=== PATIENT | male | born 1940 | race Caucasian/White ===

== ENCOUNTER 2022-05-21 14:55 | Emergency (ER) | payer OTHER, MEDICARE, SELFPAY ==
[2022-05-21] VITALS (14 sets, daily range): BP systolic 141–178; BP diastolic 55–74; PULSE 64–77; RESP 12–26; TEMP 36.8; O2SAT 97–100
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
--- NOTE | ~2022-05-21 | CT_ITS ---
EXAMINATION: CT brain wo con INDICATION: Dizziness COMPARISON: None TECHNIQUE: Standard unenhanced head CT. The dose-length product (DLP) was 681.00 mGy-cm. The mA was a djusted according to patient size. Iterative reconstruction technique was employed. FINDINGS: There is no acute intraparenchymal hemorrhage. No evidence of mass lesion. No evidence of a cute infarction. There is mild periventricular and subcortical hypodensity probably related to small vessel ischemic disease. There is mild prominence of the sulci and ventricles related to cerebral atr ophy. Intracranial calcified cerebral atherosclerosis is noted. There are no extra-axial collections. There is no mass effect or midline shift. The orbits and soft tissues are unremarkable. The visualiz ed sinuses and mastoid air cells are well aerated. IMPRESSION: 1. No acute intracranial abnormality. 2. Age related findings. Reviewed, dictated and finalized at location F. PRODUCTION HEATER
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
--- NOTE | 2022-05-21 15:04 | ECG_ITS ---
Measurements Intervals [place] Rate: 66 P: -6 MT: 179 QRS: 13 QRSD: 102 T: 27 QT: 382 QTc: 401 Interpretive Statements SINUS RHYTHM BASELINE ARTIFACT- I, II, III, AVR, AVL, AVF, V1-V6 NORMAL ECG NO PREVIOUS ECG AVAILABLE FOR COMPARISON Electronically Signed On 05-22-2022 7:48:39 STORY TELLER by Jose Erwin D.O.
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
[2022-05-21 16:10] LABS: Basophils Percent Auto 0.2 % (0.2-1.2); Eosinophils Percent Auto 0.3 % (0-4.4); Hematocrit 36.2 % (42.0-52.0); Hemoglobin 11.9 g/dL (14.0-18.0); Immature Granulocyte Absolute 0.07 K/mm3 (0.00-0.031); Immature Granulocyte Percent A 0.8 % (0-0.5); Lymphocytes Absolute Auto 1.21 K/mm3 (0.9-3.2); Lymphocytes Percent Auto 13.8 % (18.3-44.2); Mean Corpuscular HGB Conc 32.9 g/dl (32-36); Mean Corpuscular Hemoglobin 36.8 pg (26-34); Mean Corpuscular Volume 112.1 fl (80-100); Mean Platelet Volume 9.6 fl (7.4-10.4); Monocytes Absolute Auto 0.5 K/mm3 (0.1-0.6); Monocytes Percent Auto 5.3 % (2.6-8.5); Neutrophils Percent Auto 79.6 % (45.5-73.1); Platelet Count Result 181 k/mm3 (150-375); Red Blood Count 3.23 M/mm3 (4.6-6.20); Red Cell Distribution Width 13.3 % (11.5-14.5); White Blood Count 8.8 K/mm3 (4.5-10.0)
[2022-05-21 16:17] LABS: Alanine Aminotransferase 16 U/L (6-50); Albumin Level 4.3 g/dL (3.5-5.1); Alkaline Phosphatase 116 U/L (38-126); Anion Gap 8 mmol/L (8-16); Aspartate Amino Transferase 30 U/L (17-59); Bilirubin,Total 0.9 mg/dL (0.2-1.3); Blood Urea Nitrogen 14 mg/dL (9-20); Calcium 8.9 mg/dL (8.4-10.2); Carbon Dioxide 29 mmol/L (22-30); Chloride 102 mmol/L (98-107); Estimated CRCL calculation 82 ml/min; Estimated Glomerular Filt Rate > 60; Glucose 117 mg/dL (65-110); Lipase 199 U/L (23-300); Potassium 4.3 mmol/L (3.4-5.0); Sodium 139 mmol/L (137-145)
[2022-05-21 16:28] LABS: Troponin I 0.017 ng/mL (0.000-0.034)
[2022-05-21 16:42] LABS: Platelet Estimate Adequate (Adequate)
[2022-05-21 16:43] LABS: Macrocytosis 1+ (NORMAL); Schistocytes None Seen (NORMAL)
[2022-05-21] MEDS: TETANUS,DIPHTHERIA,AC PERTUSSIS ADULT (0.5 ML) BOOSTRIX IM (16:56)
== END 2022-05-21 18:10 | disposition short-term general hospital (02) ==
PROVIDERS: Emergency Provider Emergency Medicine; PCP Family Medicine
DX: S22.22XA Fracture of body of sternum, initial encounter for closed fracture (principal); S01.81XA Laceration without foreign body of other part of head, initial encounter; Z23 Encounter for immunization; F03.90 Unspecified dementia, unspecified severity, without behavioral disturbance, psychotic disturbance, mood disturbance, and anxiety; E78.5 Hyperlipidemia, unspecified; I10 Essential (primary) hypertension; E11.9 Type 2 diabetes mellitus without complications; M19.90 Unspecified osteoarthritis, unspecified site; E53.8 Deficiency of other specified B group vitamins; E55.9 Vitamin D deficiency, unspecified; Z87.891 Personal history of nicotine dependence; M47.812 Spondylosis without myelopathy or radiculopathy, cervical region; Z79.84 Long term (current) use of oral hypoglycemic drugs; R91.8 Other nonspecific abnormal finding of lung field; V43.52XA Car driver injured in collision with other type car in traffic accident, initial encounter
CPT/HCPCS: 12013; 36415; 70450; 71046; 71260; 72125; 72170; 80053; 83690; 84484; 85025; 90471; 90715; 93005; 99285; Q9967

== ENCOUNTER 2023-09-09 12:40 | Outpatient (CLI) | payer MEDICARE, SELFPAY ==
--- NOTE | ~2023-09-09 | CT_ITS ---
Clinical Indication: Weight loss CT Scan of the Chest, Abdomen, and Pelvis with Contrast: Technique: Contiguous sections were acquired throughout the chest, abdomen, and pelvis after intraven ous administration of 100 cc of Omnipaque 350. Dose reduction technique was used on this scan by naeem barba automated exposure control and iterative reconstruction technique. The dose-length product (DL P) was 1148.61 mGy-cm. COMPARISON: 05/21/2022 Findings: There is no evidence of any significant mediastinal, hilar or axillary lymphadenopathy. The mediastin al soft tissues appear normal. There is no evidence of pleural or pericardial effusion. Stable 6 mm nodule anterior right lung. No other significant pulmonary abnormality. The liver, spleen, pancreas, gallbladder, adrenals and kidneys are within normal limits. There are at herosclerotic calcifications of the aorta. No lymphadenopathy. No bowel obstruction or bowel wall thickening. There is no evidence to suggest acute appendicitis. There is streak artifact in the pelvis from bilateral hip arthroplasty. Urinary bladder grossly unrem arkable. No definite pelvic mass seen. No definite ascites. Impression: No acute abnormality. Stable 6 mm right lung nodule. Reviewed, dictated and finalized at [facility]. CLE OPERATOR TECHNICIAN Impression: No acute abnormality. Stable 6 mm right lung nodule.
[2023-09-09 13:05] LABS: Estimated Glomerular Filt Rate > 60
== END 2023-09-09 12:41 ==
LOC: GOSHIMG 12:41
PROVIDERS: PCP Family Medicine; Visit Provider Family Medicine
DX: R63.4 Abnormal weight loss (principal); R91.1 Solitary pulmonary nodule
CPT/HCPCS: 71260; 74177; Q9967

== ENCOUNTER 2024-03-14 11:08 | Inpatient (IN) | payer MEDICARE, SELFPAY ==
[2024-03-14] VITALS (31 sets, daily range): BP systolic 111–170; BP diastolic 55–145; PULSE 66–88; RESP 19–31; TEMP 36.2–37.1; O2SAT 70–100; BMI 21.4
--- NOTE | ~2024-03-14 | CT_ITS ---
EXAMINATION: CT brain wo con DATE: 03/14/2024 12:38 INDICATION: Fall. TECHNIQUE: Computed tomography (CT) of the head was performed without intravenous contrast. The mA wa s adjusted according to patient size. Iterative reconstruction technique was employed. The dose-lengt h product was 1135.00 mGy-cm. COMPARISON: Head CT 05/21/2022 FINDINGS: There is diffuse brain volume loss. There are scattered areas of low attenuation in the cer ebral white matter, which is within normal limits for the patient's age. There is no intracranial hem orrhage, acute infarction, or abnormal intracranial mass lesion. The ventricles are normal in size. T here is mucosal thickening and dependent fluid in the paranasal sinuses. The mastoid air cells are no rmal. The orbits are normal. IMPRESSION: 1. Normal aging brain. Reviewed, dictated and finalized at location A. IMPRESSION: 1. Normal aging brain.
--- NOTE | ~2024-03-14 | XR_ITS ---
EXAMINATION: XR chest 1V portable DATE: 03/17/2024 13:43 INDICATION: Pneumonia. TECHNIQUE: A single frontal view of the chest was obtained. COMPARISON: Chest single view 03/15/2024, chest CT 03/14/2024 FINDINGS: There are patchy airspace opacities in all right lung zones and in left mid and lower lung zones. No pleural effusion or pneumothorax. The heart size is normal. IMPRESSION: 1. Diffuse lung disease with worsening in right upper lung zone, consistent with pneumonia. Reviewed, dictated and finalized at location A. IMPRESSION: 1. Diffuse lung disease with worsening in right upper lung zone, consistent wit h pneumonia.
--- NOTE | ~2024-03-14 | CT_ITS ---
EXAMINATION: CTA chest PE protocol DATE: 03/14/2024 15:22 INDICATION: Hypoxia. Elevated d-dimer. TECHNIQUE: Computed tomography (CT) pulmonary angiogram of the chest was performed with 100 mL Omnipa que-350 intravenous contrast. Additional 3D reconstructions utilizing coronal maximum intensity proje ction (MIP) were performed. Automated exposure control and iterative reconstruction technique were em ployed. The dose-length product was 634.12 mGy-cm. COMPARISON: None FINDINGS: No pulmonary embolus. Patchy groundglass opacities and consolidation in the right upper and middle lo bes and at the superior segment of the left lower lobe. Additional more confluent consolidation in th e posterior aspect of the bilateral lower lobes with some associated volume loss consistent with atel ectasis although superimposed pneumonia not excludable. Calcified right lower lobe nodule and calcifi ed right hilar lymph nodes consistent with old granulomatous disease. No septal line thickening to judd ggest pulmonary edema. No pleural effusion. Borderline heart size. Small amount of scattered atherosc lerotic coronary artery calcific lesion. No pericardial effusion. Thoracic aorta is normal in caliber with no dissection. No pathologically enlarged thoracic lymphadenopathy. Unchanged 7 mm gallstone ve rsus polyp at the dependent neck of the otherwise normal gallbladder. Severe cervical and moderate th oracic and upper lumbar spondylosis. IMPRESSION: 1. No pulmonary embolism. 2. Patchy groundglass opacities and consolidation in the right upper and middle lobes and superior se gment left lower lobe suspicious for multifocal pneumonia. 3. Consolidation in the bilateral lower lobes with associated volume loss consistent with atelectasis although additional superimposed pneumonia not excludable. 4. Borderline heart size. 5. Unchanged 7 mm gallbladder polyp versus gallstone at the dependent neck of the otherwise normal ga llbladder. Reviewed, dictated and finalized at location B. IMPRESSION: 1. No pulmonary embolism. 2. Patchy groundglass opacities and consolidation in the right upper and middle lobes and superior segment left lower lobe suspicious for multifocal pneumonia . 3. Consolidation in the bilateral lower lobes with associated volume loss consi stent with atelectasis although additional superimposed pneumonia not excludabl e. 4. Borderline heart size. 5. Unchanged 7 mm gallbladder polyp versus gallstone at the dependent neck of t he otherwise normal gallbladder.
--- NOTE | ~2024-03-14 | US_ITS ---
EXAMINATION: US renal BI DATE: 03/14/2024 21:59 INDICATION: Acute kidney injury TECHNIQUE: Multiple grayscale and Doppler ultrasound images of the kidneys were obtained. COMPARISON: CT cap 09/09/2023 FINDINGS: The right kidney measures 10.6 x 5.8 x 5.7 cm. The left kidney measures 10.2 x 5.3 x 5.2 cm. The kidn eys demonstrate normal parenchymal echogenicity. There is no hydronephrosis. Verdugo balloon within the bladder lumen. IMPRESSION: Unremarkable renal sonogram findings. Reviewed, dictated and finalized at location K.
--- NOTE | ~2024-03-14 | XR_ITS ---
XR chest 1V portable Ordering provider: Kyra Del Castillo APRN History: 83 years Male with . difficulty breathing . Comparison: March 14, 2024 FINDINGS: MEDIASTINUM: The cardiac silhouette is slightly enlarged. LUNGS: No effusions or pneumothorax. Bilateral basal opacification suggestive of pneumonia Possibly a slightly increased compared to previous study. OTHER: No free air under the diaphragm. Degenerative changes of the spine. IMPRESSION: Bilateral basal pneumonia. Reviewed, dictated and finalized at location A. IMPRESSION: Bilateral basal pneumonia.
--- NOTE | ~2024-03-14 | XR_ITS ---
XR chest 1V portable Ordering provider: Teressa Mcguire MD History: 83 years Male with . found on floor . Comparison: May 21, 2023 FINDINGS: MEDIASTINUM: The cardiac silhouette is not enlarged. LUNGS: No effusions or pneumothorax. Bilateral basal opacification suggestive of pneumonia. OTHER: No free air under the diaphragm. Dextroscoliosis with degenerative spine. IMPRESSION: Bilateral basal pneumonia. Aspiration pneumonia is possible. Reviewed, dictated and finalized at location A.
--- NOTE | ~2024-03-14 | CT_ITS ---
EXAMINATION: CT cervical spine wo con DATE: 03/14/2024 12:38 INDICATION: Fall. TECHNIQUE: Computed tomography (CT) of the cervical spine was performed without intravenous contrast. Automated exposure control and iterative reconstruction technique were employed. The dose-length pro duct was 367.02 mGy-cm. COMPARISON: CT cervical spine 05/21/2022, chest CT 09/09/2023 FINDINGS: There is 2 mm anterolisthesis of C3 on C4, 2 mm retrolisthesis of C4 on C5 and C5 on C6, an d 2 mm anterolisthesis of C7 on T1. There is a compression fracture of T2 with less than 1/5 loss of height, stable from 09/09/2023. There is mildly decreased disc height at C3-C4 and severely decreased d isc height from C4-C5 through C6-C7. The following disc levels are specifically discussed: C2-C3: There is no uncovertebral joint osteoarthritis. There is severe bilateral facet joint osteoart hritis. There is mild right neural foraminal stenosis. There is no central canal stenosis. C3-C4: There is severe bilateral uncovertebral joint osteoarthritis. There is severe bilateral facet joint osteoarthritis. There is mild bilateral neural foraminal stenosis. There is moderate central ca nal stenosis. C4-C5: There is severe bilateral uncovertebral joint osteoarthritis. There is severe bilateral facet joint osteoarthritis. There is moderate right and mild left neural foraminal stenosis. There is moder ate central canal stenosis. C5-C6: There is severe bilateral uncovertebral joint osteoarthritis. There is moderate bilateral face t joint osteoarthritis. There is moderate right and mild left neural foraminal stenosis. There is mod erate central canal stenosis. C6-C7: There is severe bilateral uncovertebral joint osteoarthritis. There is severe bilateral facet joint osteoarthritis. There is mild bilateral neural foraminal stenosis. There is mild central canal stenosis. C7-T1: There is no uncovertebral joint osteoarthritis. There is severe bilateral facet joint osteoart hritis. There is mild bilateral neural foraminal stenosis. There is no central canal stenosis. IMPRESSION: 1. No acute fracture. 2. Severe cervical spondylosis. Reviewed, dictated and finalized at location A.
--- NOTE | 2024-03-14 11:14 | ECG_ITS ---
Test Date: 2024-03-14 11:20:12 Measurements Intervals [place] Rate: 71 P: 0 AL: 0 QRS: 47 QRSD: 95 T: 56 QT: 430 QTc: 470 Interpretive Statements SINUS RHYTHM ATRIAL PREMATURE COMPLEX AND FREQUENT VENTRICULAR PREMATURE COMPLEXES BORDERLINE ST-T WAVE ABNORMALITY- LAT/HIGH LAT LEADS BASELINE ARTIFACT- I, II, III, AVR, AVL, AVF, V1-V6 ABNORMAL ECG No previous ECG available for comparison Electronically Signed On 03-14-2024 11:24:53 CDT by Jose Erwin D.O.
[2024-03-14 11:28] LABS: Alveolar/Arterial O2 Gradient 615.1 mmHg; Base Excess ABG -7.5 mEq/l (+/-2.0); Carboxyhemoglobin 0.8 % THb (0-2.0); Fractional Inspired Oxygen 100 %; HCO3 ABG 18.1 mEq/l (22.0-26.0); Methemoglobin ABG 0.3 %THb (0-1.5); Oxygen Content ABG 14.6 %vol (16.0-22.0); Oxygen Saturation ABG 89.2 % (95.0-100.0); PCO2 ABG 37.2 mmHg (35.0-45.0); PO2 ABG 60.7 mmHg (80.0-100.0); PO2 FiO2 Ratio Arterial Blood 0.61 %; Reduced Hemoglobin 13.5 %THb (0-5.0); Total Hemoglobin 12.1 g/dL (12.0-18.0); pH ABG 7.305 (7.350-7.450)
[2024-03-14 11:32] LABS: Oxyhemoglobin 85.4 % THb (90.0-100.0)
[2024-03-14 11:33] LABS: Device NON-REBREATHER MASK; Site Drawn LEFT BRACHIAL
[2024-03-14 12:32] LABS: Hematocrit 36.3 % (42.0-52.0); Hemoglobin 11.9 g/dL (14.0-18.0); Mean Corpuscular HGB Conc 32.8 g/dl (32-36); Mean Corpuscular Hemoglobin 36.2 pg (26-34); Mean Corpuscular Volume 110.3 fl (80-100); Mean Platelet Volume 10.4 fl (7.4-10.4); Platelet Count Result 203 k/mm3 (150-375); Red Blood Count 3.29 M/mm3 (4.6-6.20); Red Cell Distribution Width 13.3 % (11.5-14.5)
[2024-03-14 12:42] LABS: Lactic Acid Reflex 3.9 mmol/L (0.7-2.0)
[2024-03-14 12:50] LABS: Creatine Kinase 2804 U/L (55-170); INR 1.3; Partial Thromboplastin Time 33.3 Seconds (22.3-36.8); Prothrombin Time 16.5 Seconds (11.1-14.7)
--- NOTE | 2024-03-14 12:54 | ED.SOB ---
HPI - SOB/Dyspnea General Chief Complaint: Shortness of Breath/Dyspnea Stated Complaint: SOB, low pulse ox Time Seen by Provider: 03/14/24 11:49 Source: patient, family (sister and great nephew, son) and EMS Mode of arrival: EMS Limitations: dementia History of Present Illness HPI Narrative: Patient presents after being found on the ground with a shelf on top of him. Last seen yesterday approximately 1700. He is active at baseline, walks 1 - 1.5 miles/day, though history of (Alzheimer) dementia, on mementdizine adn donepazil. Denies chest pain. States he is having some minor epigastric abdominal pain. He was found laying in his own stool. EMS founds him hypoxic at 60% on room air then 70s-80s. Tried CPAP but with worsening saturations by report. Denies shoulder pain. EMS adminsitered Duoneb and solumedrol. Dried blood on left head. No underlying respiratiory conditions. Lives by himself with assistance. Related Data Home Medications Medication Instructions Recorded Confirmed glucosamine-chondroitin 250 mg-200 2 tablet PO TID 12/12/19 03/14/24 mg tablet (Osteo Bi-Flex) vit C,E,zinc,copper-jjaqk2b 250 1 cap PO DAILY 12/12/19 03/14/24 mg-lutein 5 mg-zeaxanthin 1 mg capsule (Ocuvite Adult 50 Plus) naproxen sodium 220 mg capsule 220 mg PO DAILY PRN Pain 01/12/23 03/14/24 (Aleve) clobetasol 0.05 % topical cream 1 applic topical DAILY PRN Pain 02/28/24 03/14/24 Allergies Allergy/AdvReac Type Severity Reaction Status Date / Time No Known Allergies Allergy Verified 02/28/24 08:46 [facility] Past Medical History Medical History (Updated 03/14/24 @ 16:33 by Kimberly Brantley PA-C) Arthritis Dementia without behavioral disturbance Dyslipidemia Essential hypertension Sternal fracture (05/2022) Type 2 diabetes mellitus without complication, without long-term current use of insulin hemoglobin A1c: 5.4(07/28) << 5.3(01/24) << 5.4(06/25) << 6.4(08/22) << 6.1(03/20). Vitamin B12 deficiency Vitamin D deficiency Surgical History Surgical History (Updated 03/14/24 @ 16:23 by Kimberly Brantley PA-C) History of arthroplasty of left hip (01/2000) History of arthroplasty of right hip History of tonsillectomy Family History Family History Father Bone cancer Mother Heart failure Social History Social History (Updated 03/14/24 @ 20:41 by Kimberly Brantley PA-C) Social History: Surrogate medical decision maker: Jus Kyle, sibling. Code status: Do not resuscitate. Smoking status: Former smoker Second hand tobacco smoke exposure: No Smoking end date: 07/05/81 Alcohol intake: former Substance use: never Substance use type: does not use Do You Feel Safe in your Home?: Yes Lack of Transportation: No Lack of Food: Never True Current Housing: I Have Housing Concerned About Future Housing: No Difficulty Paying Gas/Electric Bills: No Difficulty Paying for Meds: No Currently Unemployed: No Education: High School Diploma/GED Difficulty w/ Childcare or Family Care: No Living arrangements: alone Additional living arrangements comments: The patient lives alone but grandson is next door and family members are very involved in his care. He is quite independent are maintained his home, and walks up to 1.5 miles a day. Occupation/Education: retired Additional occupation/education comments: [employer]. Spiritual care concerns: No Agree to blood products: Yes Exam Narrative: GENERAL: Acutely ill appearing but only in mild distress EYES: Non injected, non icteric ENT: Nares clear, no rhinorrhea or epistaxis. Tacky mucous membranes. NECK: Supple. CHEST: Tachypneic. Coasrse bilateral breath sounds. High flow nasal cannula in place. HEART: Regular rate and rhythm. . ABDOMEN: Soft, nondistended. Nontender to palpation. EXTREMITIES: Normal range of motion of the left arm at the shoulder, no bony crepitus. No lower extremity
[2024-03-14 12:58] LABS: Alanine Aminotransferase 25 U/L (6-50); Albumin Level 4.4 g/dL (3.5-5.1); Alkaline Phosphatase 106 U/L (38-126); Anion Gap 18 mmol/L (4-12); Aspartate Amino Transferase 106 U/L (17-59); Bilirubin,Total 1.6 mg/dL (0.2-1.3); Blood Urea Nitrogen 51 mg/dL (9-20); CRP 22.7 mg/dL (<1.0); Calcium 8.8 mg/dL (8.4-10.2); Carbon Dioxide 21 mmol/L (22-30); Chloride 99 mmol/L (98-107); Estimated CRCL calculation 28 ml/min; Estimated Glomerular Filt Rate 36; Glucose 169 mg/dL (65-110); Potassium 3.6 mmol/L (3.4-5.0); Sodium 138 mmol/L (137-145)
[2024-03-14 13:09] LABS: Band Neutrophils Percent 32 % (0-6); Lymphocytes Absolute Manual 0.96 K/mm3 (1.1-4.5); Metamyelocytes Percent 3 %; Monocytes Absolute Manual 0.36 K/mm3 (0.1-0.90); Monocytes Percent Manual 6 % (3-9); Neutrophils Percent Manual 43 % (46-73); Total Cells Counted 100
[2024-03-14 13:10] LABS: Platelet Estimate Adequate (Adequate); Schistocytes None Seen
[2024-03-14 13:16] LABS: Add Urine Microscopic? YES; Appearance Urine Cloudy (Clear); Bacteria Urine None Seen /hpf; Bilirubin Urine Negative (Negative); Blood Urine Trace (Negative); Color Urine Dark Yellow (Yellow); Glucose Urine UA Negative (Negative); Hyaline Casts Urine Present /lpf; Ketones Urine Trace mg/dL (Negative); Leukocyte Esterase Ur Negative LEU/UL (Negative); Need Manual Microscopic Reviewed; Nitrate Urine Negative (Negative); Protein Urine Trace mg/dL (Negative); Specific Grav Ur 1.017 (1.001-1.035); Squamous Epithelial Cell Urine None Seen /hpf (Few); WBC Urine 0-5 /hpf (0-3)
[2024-03-14] MEDS: SODIUM CHLORIDE 0.9% IV 1,000 ML 999 ML IV CONT ×2 (13:28→13:29)
[2024-03-14] MEDS: AZITHROMYCIN 500 MG/NS 250 ML 500 MG/250 ML BAG 250 MG IVPB (13:29)
[2024-03-14 13:54] LABS: SARS-CoV-2 RNA PCR Positive (Negative)
[2024-03-14 14:04] LABS: Lipase 26 U/L (23-300)
[2024-03-14 14:19] LABS: D Dimer 1.81 ug/mL (<0.48)
[2024-03-14 14:22] LABS: NT Pro B Type Natriuretic Pept 4070 pg/mL (19.9-100)
[2024-03-14 15:16] LABS: MRSA (PCR) NOT DETECTED (NOT DETECTE)
[2024-03-14 15:27] LABS: Reflex Lactic Acid Yes or No Add Lactic
[2024-03-14] MEDS: VANCOMYCIN 1,250 MG/NS 250 ML 1,250 MG/250 ML BAG 166.67 MG IVPB (15:30)
--- NOTE | 2024-03-14 16:20 | PM.IMHP ---
H&P: HPI History of Present Illness Date/Time: 03/14/24 16:20 Chief Complaint: Shortness of breath. Narrative: This is an 83-year-old male with dementia, hypertension, hyperlipidemia, and diet-controlled type 2 diabetes mellitus who presented to the emergency department via EMS from home for evaluation of shortness of breath. The patient is not the greatest historian and some of the following is supplemented via a review of his EMR as well as information provided by family members. At baseline he has short-term memory loss but is able to live at home independently. A grandson lives next door and his siblings live close and do provide the patient with assistance and are in touch with him frequently. The patient is able to maintain his home. He is very active and typically walks a mile and a half every day. Niece saw him last evening at about 17:00 and he seemed to be in his usual state of health. On Tuesdays his sister picks him up to go grocery shopping and she called him before coming overt about 09:45 but he did not answer which is unusual. She then went to check on him and found him lying between his bed and the wall with a dresser drawer on top of him. He did not remember how he ended up in that position. Family member suspect that he probably fell and tried to get himself up by grabbing onto the dresser, causing the door to come loose and land on him. He does not have a history of falls. EMS was summoned and upon their arrival the patient was reportedly quite short of breath and hypoxic. He was placed on CPAP which they stated made him worse. At the time my evaluation the patient is watching television and has just finished dinner. He does not have any specific complaints but does endorse shortness of breath when questioned. He denies headache, lightheadedness, dizziness, sinus congestion, sore throat, chest pain, nausea, vomiting, and diarrhea. Family members are not aware of any sick contacts. They have not noticed the patient having difficulties with drinking, eating, and swallowing. They report that his confusion seems to be worse today than usual. In the ED: Vital signs on arrival include an SpO2 of 70%, respiratory 24, blood pressure 145/90, pulse 79, temperature 97.2?. Labs are significant for WBC count of 6.0 with 32% bands, hemoglobin 11.9, MCV 110.3, D-dimer 1.81, BUN 51, creatinine 1.80, lactic acid 3.9, total bilirubin 1.6, AST 106, total CK 2804, CRP 22.7, proBNP 4070. He tested positive for SARS-CoV-2 by PCR. Head and cervical spine CTs were without acute findings. Chest CTA was negative for pulmonary embolism but did show multifocal pneumonia, borderline heart size, and an unchanged 7 mm gallbladder polyp versus stone. He was given azithromycin, ceftriaxone, vancomycin, and normal saline and he is being admitted in this setting for further treatment. Review of Systems Review of Systems: Limited due to the patient's short-term memory loss. Review of systems was negative except for as per HPI. COUNTS INCLUDE 234 BEDS AT THE [facility] Past Medical History Medical History (Updated 03/14/24 @ 16:33 by Kimberly Brantley PA-C) Arthritis Dementia without behavioral disturbance Dyslipidemia Essential hypertension Sternal fracture (05/2022) Type 2 diabetes mellitus without complication, without long-term current use of insulin hemoglobin A1c: 5.4(07/28) << 5.3(01/24) << 5.4(06/25) << 6.4(08/22) << 6.1(03/20). Vitamin B12 deficiency Vitamin D deficiency Surgical History Surgical History (Updated 03/14/24 @ 16:23 by Kimberly Brantley PA-C) History of arthroplasty of left hip (01/2000) History of arthroplasty of right hip History of tonsillectomy Family History Family History Father Bone cancer Mother Heart failure Social History Social History (Updated 03/14/24 @ 20:41 by Kimberly Brantley PA-C) Social History: Surrogate medical decision maker: Jus Wright, sibling. Code status: Do not resuscitat
[2024-03-14] MEDS: REMDESIVIR 200 MG/NS 250 ML 200 MG/250 ML BAG 250 MG IVPB (17:30)
[2024-03-14 17:35] LABS: Glucose Point of Care 110 mg/dl (65-105)
--- NOTE | 2024-03-14 18:24 | PC.NURSE ---
Patient arrived from ED at 1707 via stretcher, alert and oriented x1, pulling at NRB. Patient placed on AIRVOW 50 L , 90% by respiratory. Wound photos of coccyx and left elbow. Brother and sister at bedside to answer admission questions.
[2024-03-14] MEDS: IPRATROPIUM 0.5 MG/ALBUTEROL SULFATE 2.5 MG AMPUL.NEB 3 ML INHALATION (20:07)
[2024-03-14 20:19] LABS: Lactic Acid Reflex 2.7 mmol/L (0.7-2.0)
[2024-03-14 20:33] LABS: Glucose Point of Care 132 mg/dl (65-105)
[2024-03-14] MEDS: guaiFENesin 12 HR 600 MG TABCR PO (21:06)
[2024-03-14] MEDS: DONEPEZIL HCL 10 MG TABLET PO (21:06)
[2024-03-14] MEDS: MEMANTINE 10 MG TABLET PO (21:06)
[2024-03-14] MEDS: DOXYCYCLINE HYCLATE 100 MG TABLET PO (21:06)
[2024-03-14] MEDS: LACTATED RINGERS 1,000 ML 75 ML IV CONT (21:07)
[2024-03-15] VITALS (25 sets, daily range): BP systolic 117–153; BP diastolic 41–63; PULSE 73–108; RESP 18–28; TEMP 36.4–36.9; O2SAT 91–100
[2024-03-15] MEDS: IPRATROPIUM 0.5 MG/ALBUTEROL SULFATE 2.5 MG AMPUL.NEB 3 ML INHALATION ×4 (02:08→20:36)
[2024-03-15 04:42] LABS: Hematocrit 27.5 % (42.0-52.0); Hemoglobin 9.4 g/dL (14.0-18.0); Mean Corpuscular HGB Conc 34.2 g/dl (32-36); Mean Corpuscular Hemoglobin 36.6 pg (26-34); Mean Platelet Volume 10.2 fl (7.4-10.4); Platelet Count Result 140 k/mm3 (150-375); Red Blood Count 2.57 M/mm3 (4.6-6.20); Red Cell Distribution Width 13.4 % (11.5-14.5); White Blood Count 4.1 K/mm3 (4.5-10.0)
[2024-03-15 05:03] LABS: Alanine Aminotransferase 26 U/L (6-50); Albumin Level 3.1 g/dL (3.5-5.1); Alkaline Phosphatase 76 U/L (38-126); Anion Gap 11 mmol/L (4-12); Aspartate Amino Transferase 97 U/L (17-59); Blood Urea Nitrogen 37 mg/dL (9-20); Calcium 8.3 mg/dL (8.4-10.2); Carbon Dioxide 21 mmol/L (22-30); Chloride 107 mmol/L (98-107); Creatine Kinase 1373 U/L (55-170); Estimated CRCL calculation 44 ml/min; Estimated Glomerular Filt Rate > 60; Glucose 121 mg/dL (65-110); Lactate Dehydrogenase 290 U/L (120-246); Magnesium 2.1 mg/dL (1.6-2.3); Potassium 4.1 mmol/L (3.4-5.0); Sodium 139 mmol/L (137-145)
[2024-03-15 05:20] LABS: Total Cells Counted 100
[2024-03-15 05:21] LABS: Band Neutrophils Percent 14 % (0-6); Basophils Absolute Manual 0.04 K/mm3 (0.0-0.1); Basophils Percent Manual 1 % (0-1); Lymphocytes Absolute Manual 0.28 K/mm3 (1.1-4.5); Lymphocytes Percent Manual 7 % (18-44); Monocytes Absolute Manual 0.16 K/mm3 (0.1-0.90); Monocytes Percent Manual 4 % (3-9)
[2024-03-15 05:23] LABS: Metamyelocytes Percent 2 %; Neutrophils Absolute Manual 3.52 K/mm3 (1.3-6.7); Neutrophils Percent Manual 72 % (46-73); Platelet Estimate Decreased (Adequate); Schistocytes None Seen
[2024-03-15 05:34] LABS: CRP 32.2 mg/dL (<1.0)
[2024-03-15] MEDS: guaiFENesin 12 HR 600 MG TABCR PO ×2 (08:48→21:37)
[2024-03-15] MEDS: CYANOCOBALAMIN 1,000 MCG TABLET 1000 MCG BY MOUTH (08:48)
[2024-03-15] MEDS: CHOLECALCIFEROL 1,000 UNITS TABLET 2000 UNITS PO (08:48)
[2024-03-15] MEDS: OPTI-GEN TAB 1 TABLET PO (08:48)
[2024-03-15] MEDS: dexAMETHasone 2 MG TABLET 6 MG PO (08:48)
[2024-03-15] MEDS: DOXYCYCLINE HYCLATE 100 MG TABLET PO ×2 (08:48→21:37)
[2024-03-15] MEDS: LACTATED RINGERS 1,000 ML 75 ML IV CONT (08:49)
[2024-03-15] MEDS: MEMANTINE 10 MG TABLET PO ×2 (08:49→21:37)
--- NOTE | 2024-03-15 16:11 | PM.IMPN ---
Progress Note: A&P Assessment and Plan (1) Sepsis: Code(s): A41.9 - Sepsis, unspecified organism Status: Acute (2) Acute respiratory failure with hypoxia: Code(s): J96.01 - Acute respiratory failure with hypoxia Status: Acute (3) Multifocal pneumonia: Code(s): J18.9 - Pneumonia, unspecified organism Status: Acute (4) COVID: Code(s): U07.1 - COVID-19 Status: Acute (5) Rhabdomyolysis: Code(s): M62.82 - Rhabdomyolysis Status: Acute (6) Acute kidney injury: Code(s): N17.9 - Acute kidney failure, unspecified Status: Acute (7) Dementia: Code(s): F03.90 - Unspecified dementia, unspecified severity, without behavioral disturbance, psychotic disturbance, mood disturbance, and anxiety Status: Acute (8) Essential hypertension: Code(s): I10 - Essential (primary) hypertension Status: Acute Plan #SARS-CoV-2 vs bacterial vs aspiration pneumonia -continue empiric antibiotics and scheduled bronchodilators. -Bedside swallow evaluation shows no signs of aspiration -continue remdesivir and dexamethasone and will be placed in isolation. -Currently on Vapotherm with improvement. -Wean oxygen as tolerated. #Rhabdomyolysis 2/2 fall -Total CK is elevated -head CT no significant finding, neck CT no acute fracture -Continue hydration with close monitoring of volume status and total CK levels. -Acute kidney injury is likely related to underlying sepsis, mild dehydration, and rhabdomyolysis. -Bladder scan to rule out urinary retention. -Medications will be renally dosed and nephrotoxic agents will be avoided. Subjective Date/time seen: 03/15/24 16:11 Interval history: Patient is oriented to person. Had a discussion with the family member will is very close to him. Patient denies any fever chills nausea vomiting or diarrhea. Review of Systems Review of Systems: Limited due to the patient's short-term memory loss. Review of systems was negative except for as per HPI. Exam Narrative: General: Mildly ill-appearing male sitting up in bed. Weight: 69.9 kg. BMI: 21.5. HEENT: Abrasion to the right side of the scalp. PERRL, EOMI. Conjunctiva mildly injected. Sclera anicteric. Tacky mucous membranes. Neck: Supple. No midline vertebral tenderness. Respiratory: Respirations are nonlabored and he is tolerating Vapotherm. Coarse lung sounds heard throughout all lung sequeira with scattered rales and rhonchi. Occasional dry sounding cough. Cardiovascular: Regular rate and rhythm with S1-S2. Gastrointestinal: Abdomen is soft, nontender, and nondistended with positive bowel sounds. Delete Skin: Warm and dry. Abrasion on the right side of the scalp. Bruising about the shoulders and some scabbing on the anterior badillo. Extremities: No cyanosis, clubbing, or edema. Radial and pedal pulses intact. Neurological: Alert to name and date of . He could not tell me his current age or the current year ?who needs to remember that stuff anymore?? He tells me that he is in his house watching television. Cranial nerves 2-12 are grossly intact. Speech is clear. No facial asymmetry. No gross focal deficits to casual conversation. Psychiatric: Pleasantly confused and cooperative. Objective Data Vital Signs Vital Signs: Vital Signs - 24 hr 03/14/24 16:13 03/14/24 17:20 03/14/24 17:07 Temperature 98.8 F 97.6 F Pulse Rate 84 84 Respiratory Rate 24 H 20 Blood Pressure 128/68 139/55 L Pulse Oximetry 100 94 96 Oxygen Delivery High Flow Therapy with Na Oxygen Flow Rate 50 Fraction of Inspired Oxygen 93 03/14/24 18:00 03/14/24 20:12 03/14/24 20:14 Temperature Pulse Rate 78 88 Respiratory Rate 22 H Blood Pressure Pulse Oximetry 96 Oxygen Delivery High Flow Therapy with Na Oxygen Flow Rate 50 Fraction of Inspired Oxygen 89 03/14/24 20:19 03/14/24 20:20 03/14/24 20:00 Temperature 98.8 F Pulse Rate 85
[2024-03-15] MEDS: DONEPEZIL HCL 10 MG TABLET PO (17:09)
[2024-03-15] MEDS: REMDESIVIR 100 MG/NS 250 ML 100 MG/250 ML BAG 250 MG IVPB (21:37)
[2024-03-16] VITALS (22 sets, daily range): BP systolic 106–137; BP diastolic 48–89; PULSE 82–108; RESP 20–28; TEMP 36.2–37.3; O2SAT 96–100
[2024-03-16 05:09] LABS: Hemoglobin 9.3 g/dL (14.0-18.0); Immature Platelet Fraction Pct 3.8 % (0.9-11.2); Mean Corpuscular HGB Conc 32.1 g/dl (32-36); Mean Corpuscular Hemoglobin 35.6 pg (26-34); Mean Corpuscular Volume 111.1 fl (80-100); Mean Platelet Volume 10.3 fl (7.4-10.4); Platelet Count Result 125 k/mm3 (150-375); Red Blood Count 2.61 M/mm3 (4.6-6.20); Red Cell Distribution Width 13.9 % (11.5-14.5); White Blood Count 5.6 K/mm3 (4.5-10.0)
[2024-03-16 05:16] LABS: Alanine Aminotransferase 29 U/L (6-50); Albumin Level 3.1 g/dL (3.5-5.1); Alkaline Phosphatase 67 U/L (38-126); Anion Gap 8 mmol/L (4-12); Aspartate Amino Transferase 85 U/L (17-59); Bilirubin,Total 0.9 mg/dL (0.2-1.3); Blood Urea Nitrogen 30 mg/dL (9-20); Calcium 8.3 mg/dL (8.4-10.2); Carbon Dioxide 26 mmol/L (22-30); Chloride 106 mmol/L (98-107); Estimated CRCL calculation 65 ml/min; Estimated Glomerular Filt Rate > 60; Glucose 122 mg/dL (65-110); Potassium 4.2 mmol/L (3.4-5.0); Sodium 140 mmol/L (137-145)
[2024-03-16 05:20] LABS: INR 1.5; Prothrombin Time 18.7 Seconds (11.1-14.7)
[2024-03-16] MEDS: IPRATROPIUM 0.5 MG/ALBUTEROL SULFATE 2.5 MG AMPUL.NEB 3 ML INHALATION ×4 (06:55→21:07)
[2024-03-16] MEDS: DOXYCYCLINE HYCLATE 100 MG TABLET PO ×2 (08:59→20:26)
[2024-03-16] MEDS: CYANOCOBALAMIN 1,000 MCG TABLET 1000 MCG BY MOUTH (08:59)
[2024-03-16] MEDS: dexAMETHasone 2 MG TABLET 6 MG PO (08:59)
[2024-03-16] MEDS: OPTI-GEN TAB 1 TABLET PO (08:59)
[2024-03-16] MEDS: guaiFENesin 12 HR 600 MG TABCR PO ×2 (08:59→20:26)
[2024-03-16] MEDS: MEMANTINE 10 MG TABLET PO ×2 (08:59→20:26)
[2024-03-16] MEDS: CHOLECALCIFEROL 1,000 UNITS TABLET 2000 UNITS PO (08:59)
--- NOTE | 2024-03-16 14:10 | PCPTNOTE ---
Per OT advised not to see patient for PT, patient is having increase confusion and not following any commands. Patient not appropriate for PT therapy treatment.
--- NOTE | 2024-03-16 15:36 | PM.IMPN ---
Progress Note: A&P Assessment and Plan (1) Sepsis: Code(s): A41.9 - Sepsis, unspecified organism Status: Acute (2) Acute respiratory failure with hypoxia: Code(s): J96.01 - Acute respiratory failure with hypoxia Status: Acute (3) Multifocal pneumonia: Code(s): J18.9 - Pneumonia, unspecified organism Status: Acute (4) COVID: Code(s): U07.1 - COVID-19 Status: Acute (5) Rhabdomyolysis: Code(s): M62.82 - Rhabdomyolysis Status: Acute (6) Acute kidney injury: Code(s): N17.9 - Acute kidney failure, unspecified Status: Acute (7) Dementia: Code(s): F03.90 - Unspecified dementia, unspecified severity, without behavioral disturbance, psychotic disturbance, mood disturbance, and anxiety Status: Acute (8) Essential hypertension: Code(s): I10 - Essential (primary) hypertension Status: Acute Plan #SARS-CoV-2 vs bacterial vs aspiration pneumonia -continue empiric antibiotics and scheduled bronchodilators. -Bedside swallow evaluation shows no signs of aspiration -continue remdesivir and dexamethasone and will be placed in isolation. -Currently on Vapotherm with improvement. -Wean oxygen as tolerated. #Rhabdomyolysis 2/2 fall -Total CK is elevated -head CT no significant finding, neck CT no acute fracture -Continue hydration with close monitoring of volume status and total CK levels. -Acute kidney injury is likely related to underlying sepsis, mild dehydration, and rhabdomyolysis. -Bladder scan to rule out urinary retention. -Medications will be renally dosed and nephrotoxic agents will be avoided. Subjective Date/time seen: 03/16/24 15:36 Interval history: Night team reports patient had episodes of agitation and was restrained physically. Today morning during the evaluation patient was calm and was resting in the bed. Patient has baseline dementia and the confusion/delirium is due to dementia. Today we started the patient on trazodone 50 mg p.o. q.h.s. Review of Systems Review of Systems: Limited due to the patient's short-term memory loss. Review of systems was negative except for as per HPI. Exam Narrative: General: Mildly ill-appearing male sitting up in bed. Weight: 69.9 kg. BMI: 21.5. HEENT: Abrasion to the right side of the scalp. PERRL, EOMI. Conjunctiva mildly injected. Sclera anicteric. Tacky mucous membranes. Neck: Supple. No midline vertebral tenderness. Respiratory: Respirations are nonlabored and he is tolerating Vapotherm. Coarse lung sounds heard throughout all lung sequeira with scattered rales and rhonchi. Occasional dry sounding cough. Cardiovascular: Regular rate and rhythm with S1-S2. Gastrointestinal: Abdomen is soft, nontender, and nondistended with positive bowel sounds. Delete Skin: Warm and dry. Abrasion on the right side of the scalp. Bruising about the shoulders and some scabbing on the anterior badillo. Extremities: No cyanosis, clubbing, or edema. Radial and pedal pulses intact. Neurological: Alert to name and date of . He could not tell me his current age or the current year ?who needs to remember that stuff anymore?? He tells me that he is in his house watching television. Cranial nerves 2-12 are grossly intact. Speech is clear. No facial asymmetry. No gross focal deficits to casual conversation. Psychiatric: Pleasantly confused and cooperative. Objective Data Vital Signs Vital Signs: Vital Signs - 24 hr 03/15/24 16:00 03/15/24 16:00 03/15/24 16:00 Temperature 97.8 F Pulse Rate 81 81 79 Respiratory Rate 18 Blood Pressure 128/51 L Pulse Oximetry 94 93 Oxygen Delivery High Flow Nasal Cannula Oxygen Flow Rate 6 Fraction of Inspired Oxygen 03/15/24 18:00 03/15/24 20:26 03/15/24 20:00 Temperature 97.6 F Pulse Rate 78 103 H 108 H Respiratory Rate 20 Blood Pressure 153/63 H Pulse Oximetry 94 Oxygen Delivery Oxygen Flow Rate [facility]
[2024-03-16] MEDS: DONEPEZIL HCL 10 MG TABLET PO (18:03)
[2024-03-16] MEDS: traZODone HCL 50 MG TABLET PO (20:26)
[2024-03-16] MEDS: REMDESIVIR 100 MG/NS 250 ML 100 MG/250 ML BAG 250 MG IVPB (22:17)
[2024-03-17] VITALS (24 sets, daily range): BP systolic 111–120; BP diastolic 47–55; PULSE 64–90; RESP 18–24; TEMP 36.4–37.2; O2SAT 92–100
[2024-03-17] MEDS: IPRATROPIUM 0.5 MG/ALBUTEROL SULFATE 2.5 MG AMPUL.NEB 3 ML INHALATION ×4 (02:43→19:52)
[2024-03-17 05:34] LABS: Hematocrit 27.8 % (42.0-52.0); Hemoglobin 8.7 g/dL (14.0-18.0); Mean Corpuscular HGB Conc 31.3 g/dl (32-36); Mean Corpuscular Hemoglobin 35.7 pg (26-34); Mean Corpuscular Volume 113.9 fl (80-100); Platelet Count Result 111 k/mm3 (150-375); Red Blood Count 2.44 M/mm3 (4.6-6.20); Red Cell Distribution Width 13.7 % (11.5-14.5); White Blood Count 4.7 K/mm3 (4.5-10.0)
[2024-03-17 05:43] LABS: Alanine Aminotransferase 29 U/L (6-50); Albumin Level 2.8 g/dL (3.5-5.1); Alkaline Phosphatase 65 U/L (38-126); Anion Gap 7 mmol/L (4-12); Aspartate Amino Transferase 59 U/L (17-59); Bilirubin,Total 0.6 mg/dL (0.2-1.3); Blood Urea Nitrogen 29 mg/dL (9-20); Calcium 8.5 mg/dL (8.4-10.2); Carbon Dioxide 29 mmol/L (22-30); Chloride 106 mmol/L (98-107); Estimated CRCL calculation 65 ml/min; Estimated Glomerular Filt Rate > 60; Glucose 169 mg/dL (65-110); Potassium 4.4 mmol/L (3.4-5.0); Sodium 142 mmol/L (137-145)
[2024-03-17] MEDS: OPTI-GEN TAB 1 TABLET PO (09:59)
[2024-03-17] MEDS: dexAMETHasone 2 MG TABLET 6 MG PO (09:59)
[2024-03-17] MEDS: CYANOCOBALAMIN 1,000 MCG TABLET 1000 MCG BY MOUTH (10:00)
[2024-03-17] MEDS: CHOLECALCIFEROL 1,000 UNITS TABLET 2000 UNITS PO (10:00)
[2024-03-17] MEDS: guaiFENesin 12 HR 600 MG TABCR PO ×2 (10:00→21:43)
[2024-03-17] MEDS: MEMANTINE 10 MG TABLET PO ×2 (10:00→21:43)
[2024-03-17] MEDS: DOXYCYCLINE HYCLATE 100 MG TABLET PO ×2 (10:00→21:43)
--- NOTE | 2024-03-17 16:31 | PM.IMPN ---
Progress Note: A&P Assessment and Plan (1) Sepsis: Code(s): A41.9 - Sepsis, unspecified organism Status: Acute (2) Acute respiratory failure with hypoxia: Code(s): J96.01 - Acute respiratory failure with hypoxia Status: Acute (3) Multifocal pneumonia: Code(s): J18.9 - Pneumonia, unspecified organism Status: Acute (4) COVID: Code(s): U07.1 - COVID-19 Status: Acute (5) Rhabdomyolysis: Code(s): M62.82 - Rhabdomyolysis Status: Acute (6) Acute kidney injury: Code(s): N17.9 - Acute kidney failure, unspecified Status: Acute (7) Dementia: Code(s): F03.90 - Unspecified dementia, unspecified severity, without behavioral disturbance, psychotic disturbance, mood disturbance, and anxiety Status: Acute (8) Essential hypertension: Code(s): I10 - Essential (primary) hypertension Status: Acute Plan #SARS-CoV-2 vs bacterial vs aspiration pneumonia -continue empiric antibiotics and scheduled bronchodilators. -Bedside swallow evaluation shows no signs of aspiration -continue remdesivir and dexamethasone and will be placed in isolation. -Currently on Vapotherm with improvement. -Wean oxygen as tolerated. #Rhabdomyolysis 2/2 fall -Total CK is elevated -head CT no significant finding, neck CT no acute fracture -Continue hydration with close monitoring of volume status and total CK levels. -Acute kidney injury is likely related to underlying sepsis, mild dehydration, and rhabdomyolysis. -Bladder scan to rule out urinary retention. -Medications will be renally dosed and nephrotoxic agents will be avoided. Subjective Date/time seen: 03/17/24 16:31 Interval history: Patient is requiring high-flow nasal cannula. No acute events in the night. Patient looks tired. Continue remdesivir and ceftriaxone and doxycycline Review of Systems Review of Systems: Limited due to the patient's short-term memory loss. Review of systems was negative except for as per HPI. Exam Narrative: General: Mildly ill-appearing male sitting up in bed. Weight: 69.9 kg. BMI: 21.5. HEENT: Abrasion to the right side of the scalp. PERRL, EOMI. Conjunctiva mildly injected. Sclera anicteric. Tacky mucous membranes. Neck: Supple. No midline vertebral tenderness. Respiratory: Respirations are nonlabored and he is tolerating Vapotherm. Coarse lung sounds heard throughout all lung sequeira with scattered rales and rhonchi. Occasional dry sounding cough. Cardiovascular: Regular rate and rhythm with S1-S2. Gastrointestinal: Abdomen is soft, nontender, and nondistended with positive bowel sounds. Delete Skin: Warm and dry. Abrasion on the right side of the scalp. Bruising about the shoulders and some scabbing on the anterior badillo. Extremities: No cyanosis, clubbing, or edema. Radial and pedal pulses intact. Neurological: Alert to name and date of . He could not tell me his current age or the current year ?who needs to remember that stuff anymore?? He tells me that he is in his house watching television. Cranial nerves 2-12 are grossly intact. Speech is clear. No facial asymmetry. No gross focal deficits to casual conversation. Psychiatric: Pleasantly confused and cooperative. Objective Data Vital Signs Vital Signs: Vital Signs - 24 hr 03/16/24 18:00 03/16/24 20:05 03/16/24 21:14 Temperature 97.7 F Pulse Rate 90 82 84 Respiratory Rate 22 H Blood Pressure 106/48 L Pulse Oximetry 97 96 Oxygen Delivery High Flow Therapy with Na Oxygen Flow Rate 50 Fraction of Inspired Oxygen 89 03/16/24 21:14 03/16/24 21:20 03/16/24 20:00 Temperature Pulse Rate 84 82 83 Respiratory Rate 20 20 Blood Pressure Pulse Oximetry Oxygen Delivery Oxygen Flow Rate Fraction of Inspired Oxygen 03/16/24 20:00 03/16/24 22:00 03/17/24 00:39 Temperature 97.5 F L Pulse Rate 86 76 Respiratory Rate 22 H Blood Pressure 1
[2024-03-17] MEDS: DONEPEZIL HCL 10 MG TABLET PO (17:22)
[2024-03-17] MEDS: traZODone HCL 50 MG TABLET PO (21:43)
[2024-03-17] MEDS: REMDESIVIR 100 MG/NS 250 ML 100 MG/250 ML BAG 250 MG IVPB (21:44)
[2024-03-18] VITALS (21 sets, daily range): BP systolic 112–129; BP diastolic 50–59; PULSE 65–90; RESP 18–32; TEMP 36.2–36.7; O2SAT 90–100
[2024-03-18] MEDS: IPRATROPIUM 0.5 MG/ALBUTEROL SULFATE 2.5 MG AMPUL.NEB 3 ML INHALATION ×4 (01:54→21:01)
[2024-03-18 04:56] LABS: Hematocrit 28.2 % (42.0-52.0); Hemoglobin 8.9 g/dL (14.0-18.0); Immature Platelet Fraction Pct 8.3 % (0.9-11.2); Mean Corpuscular HGB Conc 31.6 g/dl (32-36); Mean Corpuscular Hemoglobin 36.8 pg (26-34); Mean Corpuscular Volume 116.5 fl (80-100); Mean Platelet Volume 11.5 fl (7.4-10.4); Platelet Count Result 107 k/mm3 (150-375); Red Blood Count 2.42 M/mm3 (4.6-6.20); Red Cell Distribution Width 13.6 % (11.5-14.5); White Blood Count 4.2 K/mm3 (4.5-10.0)
[2024-03-18 05:03] LABS: INR 1.3; Prothrombin Time 16.3 Seconds (11.1-14.7)
[2024-03-18 05:10] LABS: Alanine Aminotransferase 34 U/L (6-50); Albumin Level 2.8 g/dL (3.5-5.1); Alkaline Phosphatase 65 U/L (38-126); Anion Gap 7 mmol/L (4-12); Aspartate Amino Transferase 54 U/L (17-59); Bilirubin,Total 0.6 mg/dL (0.2-1.3); Blood Urea Nitrogen 33 mg/dL (9-20); Calcium 8.8 mg/dL (8.4-10.2); Carbon Dioxide 28 mmol/L (22-30); Chloride 105 mmol/L (98-107); Estimated CRCL calculation 75 ml/min; Estimated Glomerular Filt Rate > 60; Glucose 177 mg/dL (65-110); Potassium 4.4 mmol/L (3.4-5.0); Sodium 140 mmol/L (137-145)
[2024-03-18] MEDS: dexAMETHasone 2 MG TABLET 6 MG PO (10:08)
[2024-03-18] MEDS: CHOLECALCIFEROL 1,000 UNITS TABLET 2000 UNITS PO (10:08)
[2024-03-18] MEDS: CYANOCOBALAMIN 1,000 MCG TABLET 1000 MCG BY MOUTH (10:09)
[2024-03-18] MEDS: OPTI-GEN TAB 1 TABLET PO (10:09)
[2024-03-18] MEDS: guaiFENesin 12 HR 600 MG TABCR PO ×2 (10:09→20:27)
[2024-03-18] MEDS: DOXYCYCLINE HYCLATE 100 MG TABLET PO ×2 (10:09→20:27)
[2024-03-18] MEDS: MEMANTINE 10 MG TABLET PO ×2 (10:09→20:27)
--- NOTE | 2024-03-18 12:09 | PM.IMPN ---
Progress Note: A&P Assessment and Plan (1) Sepsis: Code(s): A41.9 - Sepsis, unspecified organism Status: Acute (2) Acute respiratory failure with hypoxia: Code(s): J96.01 - Acute respiratory failure with hypoxia Status: Acute (3) Multifocal pneumonia: Code(s): J18.9 - Pneumonia, unspecified organism Status: Acute (4) COVID: Code(s): U07.1 - COVID-19 Status: Acute (5) Rhabdomyolysis: Code(s): M62.82 - Rhabdomyolysis Status: Acute (6) Acute kidney injury: Code(s): N17.9 - Acute kidney failure, unspecified Status: Acute (7) Dementia: Code(s): F03.90 - Unspecified dementia, unspecified severity, without behavioral disturbance, psychotic disturbance, mood disturbance, and anxiety Status: Acute (8) Essential hypertension: Code(s): I10 - Essential (primary) hypertension Status: Acute Plan #SARS-CoV-2 vs bacterial vs aspiration pneumonia -continue empiric antibiotics and scheduled bronchodilators. -Bedside swallow evaluation shows no signs of aspiration -continue remdesivir and dexamethasone and will be placed in isolation. -Currently on Vapotherm with improvement. -Wean oxygen as tolerated. #Rhabdomyolysis 2/2 fall -Total CK is elevated -head CT no significant finding, neck CT no acute fracture -Continue hydration with close monitoring of volume status and total CK levels. -Acute kidney injury is likely related to underlying sepsis, mild dehydration, and rhabdomyolysis. -Bladder scan to rule out urinary retention. -Medications will be renally dosed and nephrotoxic agents will be avoided. Subjective Date/time seen: 03/18/24 12:09 Interval history: Patient is confused today. AAO x 1. patient is a-high-flow nasal cannula. The trial of nasal cannula failed due to the drop in oxygen saturation in mid 70s to 80s. The repeat chest x-ray shows worsening of his pneumonia. today we ordered a chest CT and repeat the COVID test. If necessary we will escalate antibiotic .We will discuss with the family tomorrow about the comfort care. Review of Systems Review of Systems: Limited due to the patient's short-term memory loss. Review of systems was negative except for as per HPI. Exam Narrative: General: Mildly ill-appearing male sitting up in bed. Weight: 69.9 kg. BMI: 21.5. HEENT: Abrasion to the right side of the scalp. PERRL, EOMI. Conjunctiva mildly injected. Sclera anicteric. Tacky mucous membranes. Neck: Supple. No midline vertebral tenderness. Respiratory: Respirations are nonlabored and he is tolerating Vapotherm. Coarse lung sounds heard throughout all lung sequeira with scattered rales and rhonchi. Occasional dry sounding cough. Cardiovascular: Regular rate and rhythm with S1-S2. Gastrointestinal: Abdomen is soft, nontender, and nondistended with positive bowel sounds. Delete Skin: Warm and dry. Abrasion on the right side of the scalp. Bruising about the shoulders and some scabbing on the anterior badillo. Extremities: No cyanosis, clubbing, or edema. Radial and pedal pulses intact. Neurological: Alert to name and date of . He could not tell me his current age or the current year ?who needs to remember that stuff anymore?? He tells me that he is in his house watching television. Cranial nerves 2-12 are grossly intact. Speech is clear. No facial asymmetry. No gross focal deficits to casual conversation. Psychiatric: Pleasantly confused and cooperative. Objective Data Vital Signs Vital Signs: Vital Signs - 24 hr 03/17/24 14:00 03/17/24 15:15 03/17/24 15:15 Temperature Pulse Rate 76 72 Respiratory Rate 20 Blood Pressure Pulse Oximetry 93 Oxygen Delivery High Flow Therapy with Na Oxygen Flow Rate 50 Fraction of Inspired Oxygen 65 03/17/24 15:29 03/17/24 16:00 03/17/24 16:00 Temperature 97.7 F Pulse Rate 74 72 73 Respiratory Rate 20 24 H Blood Pressure 118/55
--- NOTE | 2024-03-18 12:47 | PC.NURSE ---
Pt. has been refusing food but will drink water. Pt. continues to pull off AIRVO and O2 level drops to 70-80's. Pt. educated on the importance of wearing the AIRVO in his nose. Pt. is stating that he does not want to live anymore and that he is fine with dying. Family (POA/niece, Odilia & Brother, Jus) have been made aware of pt's condition and dialogue. His brother, Jus, stated that on pt's birthday, pt. said that he hoped he did not see another birthday. Pt. has another brother who will fly in from [place] and another brother to drive from [place], [place] - both on Wednesday. The [facility] plan is for the whole family to be at the hospital around 1 pm on Wednesday and for pt. to become Comfort Care. They would like pt. to be on a nasal canula so that they can visit with him. Dr Durham made aware of pt's condition, dialogue, and family's wishes.
[2024-03-18 15:28] LABS: Pneumococcal Antigen Urine NOT DETECTED
[2024-03-18] MEDS: DONEPEZIL HCL 10 MG TABLET PO (19:38)
[2024-03-18 19:43] LABS: SARS-CoV-2 RNA PCR Positive (Negative)
[2024-03-18] MEDS: traZODone HCL 50 MG TABLET PO (20:27)
[2024-03-18] MEDS: REMDESIVIR 100 MG/NS 250 ML 100 MG/250 ML BAG 250 MG IVPB (22:11)
[2024-03-18 22:27] LABS: Legionella pneumophila Ag Ur NOT DETECTED
[2024-03-19] VITALS (18 sets, daily range): BP systolic 105–126; BP diastolic 49–62; PULSE 69–113; RESP 16–24; TEMP 36.2–36.9; O2SAT 87–100
[2024-03-19] MEDS: IPRATROPIUM 0.5 MG/ALBUTEROL SULFATE 2.5 MG AMPUL.NEB 3 ML INHALATION ×2 (03:03→08:19)
[2024-03-19 04:48] LABS: Hematocrit 24.4 % (42.0-52.0); Hemoglobin 7.9 g/dL (14.0-18.0); Mean Corpuscular HGB Conc 32.4 g/dl (32-36); Mean Corpuscular Hemoglobin 36.2 pg (26-34); Mean Corpuscular Volume 111.9 fl (80-100); Mean Platelet Volume 11.3 fl (7.4-10.4); Platelet Count Result 118 k/mm3 (150-375); Red Blood Count 2.18 M/mm3 (4.6-6.20); Red Cell Distribution Width 13.3 % (11.5-14.5)
[2024-03-19 05:01] LABS: Alanine Aminotransferase 30 U/L (6-50); Albumin Level 2.5 g/dL (3.5-5.1); Alkaline Phosphatase 68 U/L (38-126); Anion Gap 4 mmol/L (4-12); Aspartate Amino Transferase 37 U/L (17-59); Bilirubin,Total 0.5 mg/dL (0.2-1.3); Blood Urea Nitrogen 37 mg/dL (9-20); Calcium 8.7 mg/dL (8.4-10.2); Carbon Dioxide 32 mmol/L (22-30); Chloride 103 mmol/L (98-107); Estimated CRCL calculation 80 ml/min; Estimated Glomerular Filt Rate > 60; Glucose 171 mg/dL (65-110); Potassium 4.1 mmol/L (3.4-5.0); Sodium 139 mmol/L (137-145)
--- NOTE | 2024-03-19 08:35 | PM.IMPN ---
Progress Note: A&P Assessment and Plan (1) Sepsis: Code(s): A41.9 - Sepsis, unspecified organism Status: Acute (2) Acute respiratory failure with hypoxia: Code(s): J96.01 - Acute respiratory failure with hypoxia Status: Acute (3) Multifocal pneumonia: Code(s): J18.9 - Pneumonia, unspecified organism Status: Acute (4) COVID: Code(s): U07.1 - COVID-19 Status: Acute (5) Rhabdomyolysis: Code(s): M62.82 - Rhabdomyolysis Status: Acute (6) Acute kidney injury: Code(s): N17.9 - Acute kidney failure, unspecified Status: Acute (7) Dementia: Code(s): F03.90 - Unspecified dementia, unspecified severity, without behavioral disturbance, psychotic disturbance, mood disturbance, and anxiety Status: Acute (8) Essential hypertension: Code(s): I10 - Essential (primary) hypertension Status: Acute Plan #SARS-CoV-2 vs bacterial vs aspiration pneumonia Under comfort care. -discontinued all medications -discontinued ceftriaxone -PRN bronchodilators. -Bedside swallow evaluation shows no signs of aspiration -Currently on Vapotherm with improvement. -Wean oxygen as tolerated. #Rhabdomyolysis 2/2 fall -Total CK is elevated -head CT no significant finding, neck CT no acute fracture -Continue hydration with close monitoring of volume status and total CK levels. -Acute kidney injury is likely related to underlying sepsis, mild dehydration, and rhabdomyolysis. -Bladder scan to rule out urinary retention. -Medications will be renally dosed and nephrotoxic agents will be avoided. Subjective Date/time seen: 03/19/24 08:35 Interval history: Patient still in the need of high-flow nasal cannula with 60% oxygen and 50 L. today we extended the remdesivir for another 5 days. Since the patient is not improving we discontinued antibiotics ceftriaxone. We started vancomycin for his Staphylococcus hominis in the blood culture even though we previously thought it might be due to the skin contamination. Patient is also started on doxy to cover the atypical. Today we will discuss with the family the long-term goal. Late afternoon : Had a long conversation with his family member including the power of java systems analyst who makes medical decision and it will be decided comfort care at this period. We discontinued all his antibiotics, and added morphine and Ativan for his pain and anxiety respectively. Review of Systems Review of Systems: Limited due to the patient's short-term memory loss. Review of systems was negative except for as per HPI. Exam Narrative: General: Mildly ill-appearing male sitting up in bed. Weight: 69.9 kg. BMI: 21.5. HEENT: Abrasion to the right side of the scalp. PERRL, EOMI. Conjunctiva mildly injected. Sclera anicteric. Tacky mucous membranes. Neck: Supple. No midline vertebral tenderness. Respiratory: Respirations are nonlabored and he is tolerating Vapotherm. Coarse lung sounds heard throughout all lung sequeira with scattered rales and rhonchi. Occasional dry sounding cough. Cardiovascular: Regular rate and rhythm with S1-S2. Gastrointestinal: Abdomen is soft, nontender, and nondistended with positive bowel sounds. Delete Skin: Warm and dry. Abrasion on the right side of the scalp. Bruising about the shoulders and some scabbing on the anterior badillo. Extremities: No cyanosis, clubbing, or edema. Radial and pedal pulses intact. Neurological: Alert to name and date of . He could not tell me his current age or the current year ?who needs to remember that stuff anymore?? He tells me that he is in his house watching television. Cranial nerves 2-12 are grossly intact. Speech is clear. No facial asymmetry. No gross focal deficits to casual conversation. Psychiatric: Pleasantly confused and cooperative. Objective Data Vital Signs Vital Signs: Vital Signs - 24 hr 03/18/24 10:00 03/18/24 12:00 03/18/24 13:23 Temper
[2024-03-19] MEDS: CHOLECALCIFEROL 1,000 UNITS TABLET 2000 UNITS PO (09:02)
[2024-03-19] MEDS: DOXYCYCLINE 100 MG/NS 100 ML 100 MG/100 ML BAG IVPB (09:02)
[2024-03-19] MEDS: guaiFENesin 12 HR 600 MG TABCR PO ×2 (09:02→21:01)
[2024-03-19] MEDS: OPTI-GEN TAB 1 TABLET PO (09:02)
[2024-03-19] MEDS: dexAMETHasone 2 MG TABLET 6 MG PO (09:02)
[2024-03-19] MEDS: CYANOCOBALAMIN 1,000 MCG TABLET 1000 MCG BY MOUTH (09:02)
[2024-03-19] MEDS: MEMANTINE 10 MG TABLET PO ×2 (09:02→21:01)
[2024-03-19] MEDS: VANCOMYCIN 1,250 MG/NS 250 ML 1,250 MG/250 ML BAG 166.67 MG IVPB (10:44)
--- NOTE | 2024-03-19 13:50 | PC.NURSE ---
comfort measures initiated at 13:10, family at bedside. HFNC Airvo removed Nasal cannula 2L placed. restraints removed
--- NOTE | 2024-03-19 16:10 | PC.NURSE ---
This patient, Oanh Fernandez, was received from [facility] on 03/19/24 at 1612. Patient/family oriented to unit policies and routines.
[2024-03-19] MEDS: MORPHINE SULFATE (*CRX) 2 MG/ML INJ IV PUSH (21:01)
[2024-03-19] MEDS: traZODone HCL 50 MG TABLET PO (21:01)
[2024-03-20 08:00] VITALS: BP 115/47; PULSE 80; RESP 17; TEMP 36.1; O2SAT 90
--- NOTE | 2024-03-20 10:11 | PC.NURSE ---
Odilia NewsomePOHolli) and refused administration for AM medications this morning. Patient on comfort measures only.
--- NOTE | 2024-03-20 10:12 | PM.IMPN ---
Progress Note: A&P Assessment and Plan (1) Sepsis: Code(s): A41.9 - Sepsis, unspecified organism Status: Acute (2) Acute respiratory failure with hypoxia: Code(s): J96.01 - Acute respiratory failure with hypoxia Status: Acute (3) Multifocal pneumonia: Code(s): J18.9 - Pneumonia, unspecified organism Status: Acute (4) COVID: Code(s): U07.1 - COVID-19 Status: Acute (5) Rhabdomyolysis: Code(s): M62.82 - Rhabdomyolysis Status: Acute (6) Acute kidney injury: Code(s): N17.9 - Acute kidney failure, unspecified Status: Acute (7) Dementia: Code(s): F03.90 - Unspecified dementia, unspecified severity, without behavioral disturbance, psychotic disturbance, mood disturbance, and anxiety Status: Acute (8) Essential hypertension: Code(s): I10 - Essential (primary) hypertension Status: Acute Plan #SARS-CoV-2 vs bacterial vs aspiration pneumonia Under comfort care and consulted hospice. -discontinued all medications -discontinued ceftriaxone -PRN bronchodilators. -Bedside swallow evaluation shows no signs of aspiration -Currently on Vapotherm with improvement. -Wean oxygen as tolerated. #Rhabdomyolysis 2/2 fall -Total CK is elevated -head CT no significant finding, neck CT no acute fracture Subjective Date/time seen: 03/20/24 10:12 Interval history: Patient is saturating around 90 with a 2 L nasal cannula. Patient 5 family was present at bedside during the evaluation and agrees to continue the comfort care. Today we will consulted hospice evaluation. Review of Systems Review of Systems: Limited due to the patient's short-term memory loss. Review of systems was negative except for as per HPI. Exam Narrative: General: Mildly ill-appearing male sitting up in bed. Weight: 69.9 kg. BMI: 21.5. HEENT: Abrasion to the right side of the scalp. PERRL, EOMI. Conjunctiva mildly injected. Sclera anicteric. Tacky mucous membranes. Neck: Supple. No midline vertebral tenderness. Respiratory: Respirations are nonlabored and he is tolerating Vapotherm. Coarse lung sounds heard throughout all lung sequeira with scattered rales and rhonchi. Occasional dry sounding cough. Cardiovascular: Regular rate and rhythm with S1-S2. Gastrointestinal: Abdomen is soft, nontender, and nondistended with positive bowel sounds. Delete Skin: Warm and dry. Abrasion on the right side of the scalp. Bruising about the shoulders and some scabbing on the anterior badillo. Extremities: No cyanosis, clubbing, or edema. Radial and pedal pulses intact. Neurological: Alert to name and date of . He could not tell me his current age or the current year ?who needs to remember that stuff anymore?? He tells me that he is in his house watching television. Cranial nerves 2-12 are grossly intact. Speech is clear. No facial asymmetry. No gross focal deficits to casual conversation. Psychiatric: Pleasantly confused and cooperative. Objective Data Vital Signs Vital Signs: Vital Signs - 24 hr 03/19/24 12:21 03/19/24 12:00 03/19/24 12:00 Temperature 98.4 F Pulse Rate 81 83 81 Respiratory Rate 24 H 24 H Blood Pressure 117/62 Pulse Oximetry 91 91 Oxygen Delivery High Flow Therapy with Na Oxygen Flow Rate 50 Fraction of Inspired Oxygen 63 03/19/24 14:00 03/19/24 16:13 03/19/24 21:16 Temperature 97.2 F L 97.6 F Pulse Rate 113 H 73 80 Respiratory Rate 22 H 22 H Blood Pressure 107/57 L 105/49 L Pulse Oximetry 88 L 87 L Oxygen Delivery Oxygen Flow Rate Fraction of Inspired Oxygen 03/19/24 20:00 03/20/24 08:00 Temperature 97.0 F L Pulse Rate 80 Respiratory Rate 17 Blood Pressure 115/47 L Pulse Oximetry 87 L 90 Oxygen Delivery Nasal Cannula Oxygen Flow Rate 2 Fraction of Inspired Oxygen Intake/Output Intake/Output: Intake & Output 03/17/24 03/18/24 03/19/24 03/20/24 23:59 23:59 23:59 23:59 Intake
[2024-03-20] MEDS: LORazepam INJ (*CRX) 2 MG/ML VIAL 0.5 MG IV PUSH (11:54)
[2024-03-20 15:09] VITALS: O2SAT 91
[2024-03-20 18:42] LABS: Mycoplasma IgM Antibody Titer 77 U/mL
[2024-03-20 20:00] VITALS: O2SAT 94
[2024-03-20] MEDS: guaiFENesin 12 HR 600 MG TABCR PO (20:36)
[2024-03-20] MEDS: traZODone HCL 50 MG TABLET PO (20:36)
[2024-03-20 21:25] VITALS: BP 124/44; PULSE 78; RESP 16; TEMP 36.4; O2SAT 89
[2024-03-21 07:07] LABS: INR 1.2; Prothrombin Time 15.7 Seconds (11.1-14.7)
[2024-03-21 07:18] LABS: Alanine Aminotransferase 23 U/L (6-50); Albumin Level 3.3 g/dL (3.5-5.1); Alkaline Phosphatase 86 U/L (38-126); Aspartate Amino Transferase 32 U/L (17-59); Bilirubin,Total 1.2 mg/dL (0.2-1.3)
[2024-03-21 08:00] VITALS: BP 118/85; PULSE 95; RESP 18; TEMP 36.2; O2SAT 100; O2SAT 90
--- NOTE | 2024-03-21 10:24 | PCNWS ---
Weekly nutritional screen. Patient is on a regular diet, no intake as pt is not eating at this time. Comfort measures in place, plan is to discharge on hospice care. No nutritional recommendations at this time.
--- NOTE | 2024-03-21 16:24 | PM.IMPN ---
Progress Note: A&P Assessment and Plan (1) Sepsis: Code(s): A41.9 - Sepsis, unspecified organism Status: Acute (2) Acute respiratory failure with hypoxia: Code(s): J96.01 - Acute respiratory failure with hypoxia Status: Acute (3) Multifocal pneumonia: Code(s): J18.9 - Pneumonia, unspecified organism Status: Acute (4) COVID: Code(s): U07.1 - COVID-19 Status: Acute (5) Rhabdomyolysis: Code(s): M62.82 - Rhabdomyolysis Status: Acute (6) Acute kidney injury: Code(s): N17.9 - Acute kidney failure, unspecified Status: Acute (7) Dementia: Code(s): F03.90 - Unspecified dementia, unspecified severity, without behavioral disturbance, psychotic disturbance, mood disturbance, and anxiety Status: Acute (8) Essential hypertension: Code(s): I10 - Essential (primary) hypertension Status: Acute Plan #SARS-CoV-2 vs bacterial vs aspiration pneumonia Under comfort care and consulted hospice. -discontinued all medications -discontinued ceftriaxone -PRN bronchodilators. -Bedside swallow evaluation shows no signs of aspiration -Currently on Vapotherm with improvement. -Wean oxygen as tolerated. #Rhabdomyolysis 2/2 fall -Total CK is elevated -head CT no significant finding, neck CT no acute fracture awaiting hospice discharge Subjective Date/time seen: 03/21/24 16:24 Interval history: Comfortable at bedside Met with brother at bedside who confirmed they are transitioning to comfort care Review of Systems Review of Systems: Limited due to the patient's short-term memory loss. Review of systems was negative except for as per HPI. Exam Narrative: General: Mildly ill-appearing male sitting up in bed. Weight: 69.9 kg. BMI: 21.5. HEENT: Abrasion to the right side of the scalp. PERRL, EOMI. Conjunctiva mildly injected. Sclera anicteric. Tacky mucous membranes. Neck: Supple. No midline vertebral tenderness. Respiratory: Respirations are nonlabored and he is tolerating Vapotherm. Coarse lung sounds heard throughout all lung sequeira with scattered rales and rhonchi. Occasional dry sounding cough. Cardiovascular: Regular rate and rhythm with S1-S2. Gastrointestinal: Abdomen is soft, nontender, and nondistended with positive bowel sounds. Delete Skin: Warm and dry. Abrasion on the right side of the scalp. Bruising about the shoulders and some scabbing on the anterior badillo. Extremities: No cyanosis, clubbing, or edema. Radial and pedal pulses intact. Neurological: Alert to name and date of . He could not tell me his current age or the current year ?who needs to remember that stuff anymore?? He tells me that he is in his house watching television. Cranial nerves 2-12 are grossly intact. Speech is clear. No facial asymmetry. No gross focal deficits to casual conversation. Psychiatric: Pleasantly confused and cooperative. Objective Data Vital Signs Vital Signs: Vital Signs - 24 hr 03/20/24 20:00 03/20/24 21:25 03/21/24 08:00 Temperature 97.6 F 97.1 F L Pulse Rate 78 95 Respiratory Rate 16 18 Blood Pressure 124/44 L 118/85 Pulse Oximetry 94 89 L 100 Oxygen Delivery Nasal Cannula Oxygen Flow Rate 2 03/21/24 08:00 Temperature Pulse Rate Respiratory Rate Blood Pressure Pulse Oximetry 90 Oxygen Delivery Room Air Oxygen Flow Rate Intake/Output Intake/Output: Intake & Output 03/18/24 03/19/24 03/20/24 03/21/24 23:59 23:59 23:59 23:59 Intake Total 100 240 336 680 Output Total 8912 235 4886 450 [phone] Meds/Results Medications: Active Medications Generic Name Dose Route Start Last Admin Trade Name Freq PRN Reason Stop Dose Admin Acetaminophen 650 mg 03/14/24 16:41 Acetaminophen 325 Mg Tablet PO Q6H PRN Mild Pain (1-3) or Fever Albuterol/Ipratropium 3 ml 03/19/24 13:40 Ipratropium 0.5 Mg/Albuterol Sulfate 2.5 Mg Ampul.Neb 3 Ml INH
[2024-03-21] MEDS: MORPHINE SULFATE (*CRX) 2 MG/ML INJ IV PUSH (16:49)
[2024-03-21] MEDS: LORazepam INJ (*CRX) 2 MG/ML VIAL IV PUSH (18:02)
[2024-03-21 21:17] VITALS: BP 123/52; PULSE 100; RESP 22; TEMP 36.6; O2SAT 90
[2024-03-22 08:00] VITALS: O2SAT 92
[2024-03-22 09:20] VITALS: O2SAT 92
--- NOTE | 2024-03-22 11:30 | PM.DS ---
DS: Admitting Diagnosis Discharge Date 03/22/24 Admitting Diagnosis SOB DS: Summary Hospital Course Hospital Course: This is an 83-year-old male with dementia, hypertension, hyperlipidemia, and diet-controlled type 2 diabetes mellitus who presented to the emergency department via EMS from home for evaluation of shortness of breath. The patient is not the greatest historian and some of the following is supplemented via a review of his EMR as well as information provided by family members. At baseline he has short-term memory loss but is able to live at home independently. A grandson lives next door and his siblings live close and do provide the patient with assistance and are in touch with him frequently. The patient is able to maintain his home. He is very active and typically walks a mile and a half every day. Niece saw him last evening at about 17:00 and he seemed to be in his usual state of health. On Tuesdays his sister picks him up to go grocery shopping and she called him before coming overt about 09:45 but he did not answer which is unusual. She then went to check on him and found him lying between his bed and the wall with a dresser drawer on top of him. He did not remember how he ended up in that position. Family member suspect that he probably fell and tried to get himself up by grabbing onto the dresser, causing the door to come loose and land on him. He does not have a history of falls. EMS was summoned and upon their arrival the patient was reportedly quite short of breath and hypoxic. He was placed on CPAP which they stated made him worse. At the time my evaluation the patient is watching television and has just finished dinner. He does not have any specific complaints but does endorse shortness of breath when questioned. He denies headache, lightheadedness, dizziness, sinus congestion, sore throat, chest pain, nausea, vomiting, and diarrhea. Family members are not aware of any sick contacts. They have not noticed the patient having difficulties with drinking, eating, and swallowing. They report that his confusion seems to be worse today than usual. In the ED: Vital signs on arrival include an SpO2 of 70%, respiratory 24, blood pressure 145/90, pulse 79, temperature 97.2?. Labs are significant for WBC count of 6.0 with 32% bands, hemoglobin 11.9, MCV 110.3, D-dimer 1.81, BUN 51, creatinine 1.80, lactic acid 3.9, total bilirubin 1.6, AST 106, total CK 2804, CRP 22.7, proBNP 4070. He tested positive for SARS-CoV-2 by PCR. Head and cervical spine CTs were without acute findings. Chest CTA was negative for pulmonary embolism but did show multifocal pneumonia, borderline heart size, and an unchanged 7 mm gallbladder polyp versus stone. He was given azithromycin, ceftriaxone, vancomycin, and normal saline and he is being admitted in this setting for further treatment. Patient was managed for sepsis, acute hypoxemic respiratory failure, pneumonia and KIMBERLY. Eventually, family discussed and decided to transition to comfort care since patient was not making any meaningful recover. Patient discharged to hospice facility for hospice/comfort care. F/u with hospice care Time Spent with Patient Time attestation: Total time spent providing and/or coordinating discharge services: Discharge Plan Discharge Attending physician on discharge: James Reece Discharging Clinician: James Reece Anticipated Discharge Date/Time: 03/22/24 11:16 Patient Disposition: Hospice - Medical Facility Activity: as tolerated Diet: as tolerated Stand Alone Forms: General Discharge Information Follow-up/Referrals: Elvia Coughlin MD [Primary Care Provider] - (F/u with hospice care) Discharge Medications: New morphine 10 mg/5 mL solution 5 mg PO Q4H PRN (Reason: dyspnea) Qty: 100 0RF lorazepam 2 mg/mL concentrate 1 mg sublingual Q4-6H PRN (Reason: agitation) 14 Days Qty: 30 1RF atropine 1 % Drops 1 - 2 drp sublingual Q4H PRN (Reason: Secreti
== END 2024-03-22 14:17 | disposition hospice, inpatient (51) | DRG 871 ==
LOC: ANHED 11:51 → ANHIMU 16:12 → ANH3MEDSUR 03-19 15:44
PROVIDERS: Physician Assistant; Admitting Provider General Practice; Emergency Provider Student in an Organized Health Care Education/Training Program; PCP Family Medicine; Visit Provider Internal Medicine
DX: A41.9 Sepsis, unspecified organism (principal); J18.9 Pneumonia, unspecified organism; J96.01 Acute respiratory failure with hypoxia; U07.1 COVID-19; N17.9 Acute kidney failure, unspecified; D64.9 Anemia, unspecified; T79.6XXA Traumatic ischemia of muscle, initial encounter; M47.812 Spondylosis without myelopathy or radiculopathy, cervical region; F03.90 Unspecified dementia, unspecified severity, without behavioral disturbance, psychotic disturbance, mood disturbance, and anxiety; E78.5 Hyperlipidemia, unspecified; I10 Essential (primary) hypertension; E11.9 Type 2 diabetes mellitus without complications; M19.90 Unspecified osteoarthritis, unspecified site; Z66 Do not resuscitate; Z96.643 Presence of artificial hip joint, bilateral; E86.0 Dehydration; Z87.891 Personal history of nicotine dependence; Z51.5 Encounter for palliative care
CPT/HCPCS: 36415; 36600; 70450; 71045; 71275; 72125; 76775; 80053; 80076; 81001; 82248; 82375; 82550; 82728; 82805; 82948; 83050; 83605; 83615; 83690; 83735; 83880; 84443; 85025; 85027; 85055; 85380; 85610; 85730; 86140; 86738; 87040; 87077; 87181; 87449; 87635; 87641; 87899; 88184; 92610; 93005; 94640; 94667; 96365; 96368; 97110; 97162; 97166; 97530; 99285; A9270; J0248; J0456; J0696; J2060; J2270; J3370; J7030; J7120; J8540; Q9967